=== PATIENT | male | born 1970 | race African-American/Black ===

== ENCOUNTER 2017-09-09 11:15 | Outpatient (CLI) | payer BC ==
--- NOTE | 2017-09-09 13:54 | MRI ---
LUMBAR SPINE MRI WITHOUT CONTRAST: 09/09/2017 HISTORY: Back pain. Prior back surgery. COMPARISON: None. TECHNIQUE: Multiplanar, multisequence MR imaging of the lumbar spine is provided without contrast. FINDINGS: The sagittal STIR imaging demonstrates no focal area of osseous marrow edema. On the basis of congen itally short pedicles, there is diffuse mild central canal stenosis. There is no anterolisthesis or retrolisthesis noted within the lumbar spine. Assuming five lumbar ty pe vertebral bodies, the conus medullaris terminates at the T12-L1 level. T12-L1: Intervertebral disk height and signal intensity are within normal limits. There is mild darnell ateral facet hypertrophy with no significant central canal or neural foraminal stenosis. L1-L2: Mild bilateral facet hypertrophy. Intervertebral disk height and signal intensity are within normal limits. No significant central canal or neural foraminal stenosis. L2-L3: Mild bilateral facet hypertrophy. Intervertebral disk height and signal intensity are within normal limits. There is a small disk protrusion in the left foraminal region with minimal left neur al foraminal stenosis. No significant central canal or right neural foraminal stenosis. L3-L4: Moderate bilateral facet hypertrophy. Intervertebral disk height and signal intensity are wi thin normal limits. There is moderate bilateral neural foraminal stenosis, left greater than right. There is mild central canal stenosis. L4-L5: There is disk space narrowing, disk desiccation, and mild disk bulge. Bilateral laminectomy changes are noted. There is no significant central canal stenosis. No significant neural foraminal stenosis. L5-S1: Bilateral facet hypertrophy, left greater than right. No significant central canal stenosis. There is minimal disk bulge with mild central canal stenosis. Imaged retroperitoneal structures appear grossly unremarkable. IMPRESSION: Postoperative and degenerative changes are noted within the lumbar spine, as detailed above. POS: [facility]
== END 2017-09-09 11:16 | disposition home or self-care (01) ==
LOC: SCSMRI 11:15
PROVIDERS: ATTEND Internal Medicine
DX: M48.061 Spinal stenosis, lumbar region without neurogenic claudication (principal); M47.816 Spondylosis without myelopathy or radiculopathy, lumbar region
CPT/HCPCS: 72148

== ENCOUNTER 2018-05-28 15:19 | Outpatient (CLI) | payer BC ==
--- NOTE | 2018-05-28 16:44 | MRI ---
MRI OF THE LEFT SHOULDER: 05/28/18 PROVIDED CLINICAL HISTORY: Left shoulder pain. FINDINGS: The components of the rotator cuff appear intact. The long head biceps tendon appears intact and norm ally located. The glenoid labrum and glenohumeral articular cartilage are not optimally evaluated in the absence of joint distention but appear grossly normal. The amount of fluid within the glenohumeral joint appears physiologic. There is no significant subacr omial subdeltoid bursal fluid evident. Acromioclavicular joint osteoarthrosis is prominent with mass effect upon the subjacent supraspinatus . Regional marrow and muscular signal appears otherwise unremarkable. IMPRESSION: 1. No evidence for rotator cuff tear. 2. Prominent acromioclavicular joint osteoarthrosis. POS: [facility]
== END 2018-05-28 15:20 | disposition home or self-care (01) ==
LOC: TBSIIMAG 15:19
PROVIDERS: ATTEND Family Medicine Sports Medicine
DX: M75.102 Unspecified rotator cuff tear or rupture of left shoulder, not specified as traumatic (principal); M19.012 Primary osteoarthritis, left shoulder